=== PATIENT | male | born 1980 | race Native Hawaiian/Other Pacific Islander ===

== ENCOUNTER 2018-12-04 20:13 | Emergency (ER) | payer OTHER ==
[~2018-12-04] VITALS: Ht 165.1 cm; Wt 81.2 kg
[2018-12-04] MEDS ORDERED: morphine INJ 10 MG/ML 1ML (SYR OR VIAL) IVP STA ×2 (20:26→20:34)
[2018-12-04] MEDS ORDERED: KETOROLAC 30 MG/ML VIAL IVP ONE (20:30)
[2018-12-04] MEDS ORDERED: NS IV 1000 ML 1,000 ML IV SCH (20:30)
[2018-12-04] MEDS ORDERED: ONDANSETRON 4 MG/2 ML (SDV) Z0FRAN IVP ONE (20:30)
[2018-12-04 20:37] LABS: HEMATOCRIT 47 % (40-54); HEMOGLOBIN 16.4 G/DL (13.3-17.7); LYMPHOCYTES % (AUTO) 23 % (12-44); MEAN CORPUSCULAR HEMOGLOBIN 32 PG (25-34); MEAN CORPUSCULAR HGB CONC 35 G/DL (32-36); MEAN CORPUSCULAR VOLUME 91 FL (80-99); NEUTROPHILS % (AUTO) 68 % (42-75); PLATELET COUNT 278 10^3/uL (130-400); RED CELL DISTRIBUTION WIDTH 12.7 % (10.0-14.5); WHITE BLOOD COUNT 10.3 10^3/uL (4.3-11.0)
[2018-12-04 20:38] LABS: BASOPHILS % (AUTO) 0 % (0-10); EOSINOPHILS # (AUTO) 0.2 10^3/uL (0.0-0.3); EOSINOPHILS % (AUTO) 2 % (0-10); LYMPHOCYTES # (AUTO) 2.3 X 10^3 (1.0-4.0); MONOCYTES # (AUTO) 0.6 X 10^3 (0.0-1.0); MONOCYTES % (AUTO) 6 % (0-12); NEUTROPHILS # (AUTO) 7.1 X 10^3 (1.8-7.8)
[2018-12-04 20:56] LABS: BUN/CREATININE RATIO 12; CALCIUM 9.2 MG/DL (8.5-10.1); CARBON DIOXIDE 21 MMOL/L (21-32); CHLORIDE 100 MMOL/L (98-107); CREATININE SERUM 0.92 MG/DL (0.60-1.30); GFR ESTIMATED > 60; GLUCOSE 128 MG/DL (70-105); POTASSIUM 3.4 MMOL/L (3.6-5.0); SODIUM 139 MMOL/L (135-145)
--- NOTE | 2018-12-04 20:58 | ED Lower Extremity ---
General Chief Complaint: Trauma-Non Activation Stated Complaint: RT HAND BURN, LT HAND FINGERS BURNED Nursing Triage Note: PT. REPORTED HE WAS WORKING ON A HOT WATER FAUSET WHEN IT EXPLODED IN HIS HANDS AND THE PT RECEIVED 2ND DEGREE WATER ORTIZ ON THE RIGHT HAND AND FINGERS AND ON THE LEFT HAND THUMB AND 2 FINGERS. THE FINGERS ON THE RIGHT HAND ARE SWELLEN, RED, AND BLISTERED AND WHITE. DOCTOR AWARE AND IN THE ROOM. Nursing Sepsis Screen: No Definite Risk Source: patient Exam Limitations: no limitations History of Present Illness Date Seen by Provider: Dec 04, 2018 Time Seen by Provider: 20:30 Initial Comments Patient is a 30-year-old right-handed male presents with second degree ortiz to left hand and fingers and right hand and fingers. Patient was working out hot water faucet when it exploded burning his hands. Patient has ortiz to the base of his right thumb, circumferential ortiz involving 80% for right thumb with early blistering and waxy skin, second degree circumferential ortiz involving entire right index finger with blistering and waxy skin, second degree circumferential ortiz involving entire right middle finger with blistering and waxy skin, second degree circumferential ortiz involving entire right fourth finger with blistering and waxy skin, second degree circumferential ortiz involving 70% right small finger with blistering and waxy skin. No involvement wrist, dorsum of hand, neurovascular intact. Left hand, second-degree ortiz involving 70% of left thumb and 60% of left index fingers, ortiz are non-circumferential, skin is waxy with blistering. Onset: just prior to arrival Severity: moderate Method of Injury: other Modifying Factors: Improves With Immobilization Allergies and Home Medications Allergies Coded Allergies: No Known Drug Allergies (Unverified , 12/04/18) Patient Home Medication List Home Medication List Reviewed: Yes Review of Systems Constitutional: see HPI EENTM: see HPI Respiratory: no symptoms reported Cardiovascular: see HPI Musculoskeletal: see HPI Skin: see HPI Past Enslzqc-Saaogr-Nylnct Hx Past Med/Social Hx: Reviewed Nursing Past Med/Soc Hx Patient Social History Recent Foreign Travel: No Contact w/Someone Who Travel: No Recent Infectious Disease Expo: No Physical Exam Vital Signs Vital Signs - First Documented 12/04/18 20:39 Temp 97.8 Pulse 82 Resp 16 B/P (MAP) 186/90 (122) Pulse Ox 100 O2 Delivery Room Air Capillary Refill : Less Than 3 Seconds Height, Weight, BMI Height: 5'5.00" Weight: 179lbs. oz. 81.577341po; BMI Method:Stated General Appearance: moderate distress HEENT: PERRL/EOMI, normal ENT inspection Neck: full range of motion, supple Respiratory: lungs clear, normal breath sounds Skin: other (Patient has ortiz to the base of his right thumb, circumferential ortiz involving 80% for right thumb with early blistering and waxy skin, second degree circumferential ortiz involving entire right index finger with blistering and waxy skin, second degree circumferential ortiz involving entire right middle finger with blistering and waxy skin, second degree circumferential ortiz involving entire right fourth finger with blistering and waxy skin, second degree circumferential ortiz involving 70% right small finger with blistering and waxy skin. No involvement wrist, dorsum of hand, neurovascular intact.) Progress/Results/Core Measures Results/Orders Lab Results Laboratory Tests Test 12/04/18 20:27 Range/Units White Blood Count 10.3 4.3-11.0 10^3/uL Red Blood Count 5.13 4.35-5.85 10^6/uL Hemoglobin 16.4 13.3-17.7 G/DL Hematocrit 47 40-54 % Mean Corpuscular Volume 91 80-99 FL Mean Corpuscular Hemoglobin 32 25-34 PG Mean Corpuscular Hemoglobin Concent 35 32-36 G/DL Red Cell Distribution Width 12.7 10.0-14.5 % Platelet Count 278 130-400 10^3/uL Mean Platelet Volume 9.0 7.4-10.4 FL Neutrophils (%) (Auto) 68 42-75 % Lymphocytes (%) (Auto) 23 12-44 % Monocytes (%) (Auto) 6 0-12 % Eosinophils (%) (Auto) 2 0-10 % Basophils (%) (Auto) 0 0-10 % Neutrophils # (Auto) 7.1 1.8-7.8 X 10^3 Lymphocytes # (Auto) 2.3 1.0-4.0 X 10^3 Monocytes # (Auto) 0.6 0.0-1.0 X 10^3 Eosinophils # (Auto) 0.2 0.0-0.3 10^3/uL Basophils # (Auto) 0.0 0.0-0.1 10^3/uL Sodium Level 139 135-145 MMOL/L Potassium Level 3.4 L 3.6-5.0 MMOL/L Chloride Level 100 98-107 MMOL/L Carbon Dioxide Level 21 21-32 MMOL/L Anion Gap 18 H 5-14 MMOL/L Blood Urea Nitrogen 11 7-18 MG/DL Creatinine 0.92 0.60-1.30 MG/DL Estimat Glomerular Filtration Rate > 60 BUN/Creatinine Ratio 12 Glucose Level 128 H 70-105 MG/DL Calcium Level 9.2 8.5-10.1 MG/DL My Orders Orders - JOSE CHAPMAN DO Cbc With Automated Diff (12/04/18 20:22) Basic Metabolic Panel (12/04/18 20:22) Ondansetron Injection (Zofran Injectio (12/04/18 20:30) Ketorolac Injection (Toradol Injection) (12/04/18 20:30) Ns Iv 1000 Ml (Sodium Chloride 0.9%) (12/04/18 20:30) Morphine Injection (Morphine Injection (12/04/18 20:34) Medications Given in ED Current Medications Medications Dose Ordered Sig/Malou Route Start Time Stop Time Status Last Admin Dose Admin Ketorolac Tromethamine 30 mg ONCE ONCE IVP 12/04/18 20:30 12/04/18 20:31 DC 12/04/18 20:40 30 MG Ondansetron HCl 4 mg ONCE ONCE IVP 12/04/18 20:30 12/04/18 20:31 DC 12/04/18 20:40 4 MG Vital Signs/I&O 12/04/18 12/04/18 20:39 20:54 Temp 97.8 97.8 Pulse 82 82 Resp 16 16 B/P (MAP) 186/90 (122) 186/90 (122) Pulse Ox 100 100 O2 Delivery Room Air Room Air Blood Pressure Mean: 122 Departure Communication (Admissions) Extensive second degree ortiz involving fingers of right hand and left hand, less than 1% total body surface area. Pain address, tetanus is up-to-date. Case reviewed in detail with [facility] attending on-call for burn center who accepts patient for admission. Ambulance offered for transport. Patient declined, states he has had a friend who is familiar with and will drive directly from the emergency department without stuffing. He agrees to be nothing by mouth. Will apply loose sterile dry dressing and keep elevated. IV pulled. [facility] updated Impression Primary Impression: Second degree burn of back of right hand Additional Impression: Second degree burn of back of left hand Disposition: XFER SHT-TRM HOSP Condition: Stable Transfer Time Spoke to Accepting Phy: 21:[address] Morris accepts patient to floor. Method of Transfer: Private Vehicle Departure-Patient Inst. Referrals: MONICO MEREDITH MD (PCP) Primary Care Physician JOSE CHAPMAN DO Dec 04, 2018 20:58
--- NOTE | 2018-12-04 21:02 | NUR ---
DOCTOR CHAPMAN IN TO SEE THE PATIENT.
[2018-12-04] MEDS ORDERED: LORazepam INJ 2 MG/ML (ATIVAN) VIAL IVP ONE (21:30)
[2018-12-04 21:40] VITALS: BP 170/78
== END 2018-12-04 22:15 | disposition short-term general hospital (02) ==
LOC: ER FS 20:15
DX: T23.261A Burn of second degree of back of right hand, initial encounter (principal); T23.262A Burn of second degree of back of left hand, initial encounter; T31.0 Burns involving less than 10% of body surface; X11.8XXA Contact with other hot tap-water, initial encounter
CPT/HCPCS: 36415; 80048; 85025; 96374; 96375